=== PATIENT | female | born 1980 | race Two or more races ===

== ENCOUNTER 2024-01-31 18:13 | Emergency (ER) | payer SELFPAY ==
[2024-01-31 19:27] LABS: BASOPHILS PERCENT AUTO 0.2 % (0.0-1.0); EOSINOPHILS ABSOLUTE AUTO 0.1 K/mm3 (0.0-0.4); EOSINOPHILS PERCENT AUTO 1.2 % (0.0-6.0); HEMATOCRIT 38.1 % (37.0-47.0); IMMATURE GRAN ABSOLUTE AUTO 0.04 K/mm3 (0.00-0.05); IMMATURE GRAN PERCENT AUTO 0.4 % (0.0-0.4); LYMPHOCYTES ABSOLUTE AUTO 1.7 K/mm3 (1.0-4.8); LYMPHOCYTES PERCENT AUTO 18.8 % (24.0-44.0); MEAN CORPUSCULAR HEMOGLOBIN 24.8 pg (28.0-32.0); MEAN CORPUSCULAR HGB CONC 31.5 g/dl (32.0-36.0); MEAN CORPUSCULAR VOLUME 78.7 fl (83.0-99.0); MEAN PLATELET VOLUME 9.2 fl (9.4-12.3); MONOCYTES ABSOLUTE AUTO 0.5 K/mm3 (0.0-0.8); MONOCYTES PERCENT AUTO 5.3 % (0.0-8.0); NEUTROPHILS ABSOLUTE AUTO 6.8 K/mm3 (1.8-7.7); NEUTROPHILS PERCENT AUTO 74.1 % (41.0-71.0); PLATELET COUNT,PLT 224 K/mm3 (150-400); RED BLOOD CELL COUNT 4.84 M/mm3 (4.10-5.30); WHITE BLOOD CELL COUNT,WBC 9.17 K/mm3 (3.9-11.3)
[2024-01-31] MEDS: Metoclopramide 10 MG/2 ML SDV IVPUSH ONE (19:37)
[2024-01-31] MEDS: HYDROmorphone 0.5 MG/0.5 ML Syringe IVPUSH ONE (19:39)
[2024-01-31] MEDS: Dextrose 5%-0.9% NaCl 1,000 ML IV SCH (19:41)
[2024-01-31] MEDS: diphenhydrAMINE 50 MG/ML SDV IVPUSH ONE (19:56)
[2024-01-31 20:03] LABS: LACTIC ACID 0.7 mmol/L (0.4-2.0)
[2024-01-31 20:09] LABS: ALANINE AMINOTRANSFERASE,ALT 38 U/L (14-59); ALBUMIN 3.9 g/dl (3.4-5.0); ALKALINE PHOSPHATASE 67 U/L (46-116); ANION GAP 11.8 (5-15); ASPARTATE AMNIOTRANSFERASE,AST 36 U/L (15-37); BILIRUBIN TOTAL 0.5 mg/dL (0.2-1.0); BLOOD UREA NITROGEN,BUN 9 mg/dL (7-18); BUN/CREATININE RATIO 11.3 (14-18); C-REACTIVE PROTEIN 0.22 mg/dL (<0.30); CALCIUM 9.1 mg/dL (8.5-10.1); CARBON DIOXIDE,CO2 26 mEq/L (21-32); CHLORIDE,CL 105 mEq/L (98-107); CREATININE 0.8 mg/dL (0.55-1.02); ESTIMATED GFR 94 mL/min (>60); GLUCOSE RANDOM 110 mg/dL (70-99); LIPASE 40 U/L (16-77); MAGNESIUM 1.9 mg/dL (1.8-2.4); POTASSIUM,K 3.8 mEq/L (3.5-5.1); PROTEIN TOTAL,TP 7.9 g/dl (6.4-8.2); SODIUM,NA 139 mEq/L (136-145)
== END 2024-01-31 23:10 | disposition home or self-care (01) ==
LOC: JD.ED 18:13
DX: K80.70 Calculus of gallbladder and bile duct without cholecystitis without obstruction (principal)
CPT/HCPCS: 36415; 74018; 76705; 80053; 82977; 83605; 83690; 83735; 84703; 85025; 86140; 96361; 96374; 96375; 99284; J1200; J2765; J7042; J1171

== ENCOUNTER 2024-02-10 07:44 | Day surgery (SDC) | payer SELFPAY ==
[~2024-02-10 07:44] MED LIST: Dexamethasone 4 MG/ML 5 ML MDV ONE; Lidocaine 1% 5 ML VIAL ONE; Midazolam 1 MG/ML 2 ML SDV ONE; Ondansetron 4 MG/2 ML SDV ONE; Propofol 200 MG/20 ML SDV ONE; Rocuronium 50 MG/5 ML Vial ONE; ceFAZolin 2 GM Vial ONE; dexmedeTOMIDine HCl 200 MCG/2 ML SDV ONE; fentaNYL 250 MCG/5 ML SDV ONE
[2024-02-10] MEDS: Lactated Ringers 1,000 ML IV SCH (08:20)
[2024-02-10] MEDS ORDERED: HYDROmorphone 0.5 MG/0.5 ML Syringe ONE (08:25)
[2024-02-10] MEDS ORDERED: Sugammadex Sodium 200 MG/2 ML VIAL IV ONE (08:40)
[2024-02-10] MEDS ORDERED: Ketorolac 30 MG/ML SDV ONE (08:41)
[2024-02-10] MEDS ORDERED: Lactated Ringers 1,000 ML ONE (08:50)
[2024-02-10] MEDS ORDERED: HYDROmorphone 0.5 MG/0.5 ML Syringe IVPUSH PRN (08:51)
[2024-02-10] MEDS ORDERED: Ondansetron 4 MG/2 ML SDV IVPUSH PRN (08:51)
[2024-02-10] MEDS ORDERED: fentaNYL 100 MCG/2 ML SDV IVPUSH PRN (08:51)
[2024-02-10] MEDS: Bupivacaine 0.5% 30 ML SDV ONE (09:27)
[2024-02-10] MEDS: EPINEPHrine 1 MG/ML SDV ONE (09:27)
== END 2024-02-10 12:24 | disposition home or self-care (01) ==
LOC: JD.SDS 07:44
PROVIDERS: ATTEND Surgery
DX: K80.64 Calculus of gallbladder and bile duct with chronic cholecystitis without obstruction (principal)
CPT/HCPCS: 47562; J0171; J0665; J0690; J1100; J1885; J2250; J2405; J2704; J3010; J3490; J7120; 00790; J1171

== ENCOUNTER 2024-02-18 12:15 | Emergency (ER) | payer SELFPAY ==
[2024-02-18] MEDS ORDERED: Sodium Chloride 0.9% 10 ML Syringe FLUSH PRN (12:38)
[2024-02-18 13:06] LABS: BASOPHILS PERCENT AUTO 0.4 % (0.0-1.0); EOSINOPHILS ABSOLUTE AUTO 0.1 K/mm3 (0.0-0.4); EOSINOPHILS PERCENT AUTO 1.8 % (0.0-6.0); HEMATOCRIT 37.5 % (37.0-47.0); HEMOGLOBIN 12.1 gm/dl (12.0-16.0); IMMATURE GRAN ABSOLUTE AUTO 0.03 K/mm3 (0.00-0.05); IMMATURE GRAN PERCENT AUTO 0.5 % (0.0-0.4); LYMPHOCYTES ABSOLUTE AUTO 1.5 K/mm3 (1.0-4.8); LYMPHOCYTES PERCENT AUTO 26.2 % (24.0-44.0); MEAN CORPUSCULAR HEMOGLOBIN 25.3 pg (28.0-32.0); MEAN CORPUSCULAR HGB CONC 32.3 g/dl (32.0-36.0); MEAN CORPUSCULAR VOLUME 78.5 fl (83.0-99.0); MEAN PLATELET VOLUME 9.2 fl (9.4-12.3); MONOCYTES ABSOLUTE AUTO 0.3 K/mm3 (0.0-0.8); MONOCYTES PERCENT AUTO 5.7 % (0.0-8.0); NEUTROPHILS ABSOLUTE AUTO 3.7 K/mm3 (1.8-7.7); NEUTROPHILS PERCENT AUTO 65.4 % (41.0-71.0); PLATELET COUNT,PLT 240 K/mm3 (150-400); RED BLOOD CELL COUNT 4.78 M/mm3 (4.10-5.30); WHITE BLOOD CELL COUNT,WBC 5.61 K/mm3 (3.9-11.3)
[2024-02-18] MEDS: Iopamidol 612 MG/ML 100 ML Bottle IVPUSH ONE (13:14)
[2024-02-18 13:28] LABS: A/G RATIO 0.9 (1-2); ALBUMIN 3.5 g/dl (3.4-5.0); ANION GAP 13.6 (5-15); BILIRUBIN TOTAL 0.6 mg/dL (0.2-1.0); BUN/CREATININE RATIO 18.6 (14-18); C-REACTIVE PROTEIN 0.71 mg/dL (<0.30); CALCIUM 8.9 mg/dL (8.5-10.1); CREATININE 0.7 mg/dL (0.55-1.02); EST CRCL DRUG DOSING (CG) 76.31 mL/min; POTASSIUM,K 3.6 mEq/L (3.5-5.1); PROTEIN TOTAL,TP 7.5 g/dl (6.4-8.2)
== END 2024-02-18 15:02 | disposition home or self-care (01) ==
LOC: JD.ED 12:15
DX: G89.18 Other acute postprocedural pain (principal); E66.9 Obesity, unspecified; Z68.31 Body mass index [BMI] 31.0-31.9, adult; Z90.49 Acquired absence of other specified parts of digestive tract
CPT/HCPCS: 36415; 74177; 80053; 85025; 86140; 99283; Q9967; 99284